=== PATIENT | male | born 1985 | race Two or more races ===

== ENCOUNTER 2024-03-30 11:07 | Emergency (ER) | payer OTHER ==
[~2024-03-30] VITALS: Ht 177.8 cm; Wt 73.0 kg
[2024-03-30] MEDS ORDERED: DEXAMETHASONE SODIUM PHOSPHATE 4 MG/ML VIAL IM STA (15:38)
[2024-03-30] MEDS ORDERED: CEFTRIAXONE SODIUM 1,000 MG VIAL IM STA (15:39)
[2024-03-30] MEDS ORDERED: KETOROLAC TROMETHAMINE 60 MG VIAL IM STA (15:39)
[2024-03-30] MEDS ORDERED: ORPHENADRINE CITRATE 30 MG/ML AMPUL IM STA (15:40)
[2024-03-30] MEDS ORDERED: AMOX1TAB5 PO (16:31)
== END 2024-03-30 18:16 | disposition home or self-care (01) ==
LOC: ER 11:09
DX: K02.9 Dental caries, unspecified (principal)